=== PATIENT | female | born 1990 | race African-American/Black ===

== ENCOUNTER 2025-06-14 08:22 | Outpatient (AMB) | payer MEDICAID, SELFPAY ==
--- NOTE | 2025-06-14 10:28 | A.OFFVIS_ITS ---
VS Expanded 06/14/25 10:38 Height 5 ft 2 in Weight 264 lb 4 oz BMI 48.3 Body Fat % 47.2 Body Fat Mass 124.8 Fat Free Mass 139.6 Visceral Fat Rating 15 Body Water % 37.9 Body Water Mass 100 Basal Metabolic Rate/Score 1,999 Intake Visit Reasons: TV 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 BMI 48.4 Allergies No Known Allergies Allergy (Verified 06/14/25 10:28) Medication List - Last Reconciled 06/14/25 by Hernando Rizzo MD aripiprazole 5 mg PO DAILY bupropion HCl SR 200 mg PO BID buspirone 15 mg PO BID famotidine 20 mg PO BID lisdexamfetamine (Vyvanse) 30 mg PO DAILY omeprazole 20 mg PO DAILY quetiapine 25 mg PO DAILY vilazodone 20 mg PO QAM HPI HPI TV [employer] 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 BMI 48.4: Details: Start time: 10.20am, End time: 11am ?I spent 35 minutes speaking with the patient on the phone plus an additional 5 minutes reviewing and updating records for a total of 40 minutes HPI Comments Details: Previous weight loss efforts: Calorie counting (GORDON harjit), exercise Wakes up: 6.30am, Sleeps: 10pm Breakfast: 8am (yogurt, cereal, oatmeal) Lunch: 12pm (pizza, potatoes, chicken, broccoli) Dinner: 6pm (chicken, pork chop, starch) Snacks: 10am (fruits, chips), 4pm (same), 8pm (same) Exercise: none Beverages: Coffee: (1 cup/d with sugar and cream), Tea: Sweet tea sometimes, Soda: Coke zero, Juice: none, ETOH: none PFSH Medical History (Updated 06/14/25 @ 10:44 by Hernando Rizzo MD) DJD (degenerative joint disease) GERD (gastroesophageal reflux disease) ADHD PTSD (post-traumatic stress disorder) Anxiety Depression Morbid obesity Surgical History (Updated 05/24/25 @ 11:21 by Anaya Downing CMA) History of intestinal surgery History of surgery on arm History of repair of ACL Hx of tooth extraction Family History (Updated 05/22/25 @ 09:24 by Anaya Downing CMA) Mother No problems noted. Father No problems noted. Daughter No problems noted. Daughter ADHD Son ADHD Son ADHD Son ADHD Autism Social History (Updated 05/22/25 @ 09:25 by Anaya Downing CMA) Alcohol intake: never Patient Tobacco Use Status: Never used Tobacco Telehealth Telehealth Telehealth Platform: Telephone Location of provider rendering services: practice address Location of patient: address on file Patient Identification confirmed using: Name, : Yes Telehealth method: voice only Patient verbally consented to treatment: Yes Patient verbally consented to billing insurance company: Yes Patient informed of any privacy concerns related to visit: Yes Minutes spent on Phone/Video with Pt.: 40 Assessment & Plan Assessment & Plan (1) Morbid obesity: Code(s): E66.01 - Morbid (severe) obesity due to excess calories Category: Medical Plan: 1.? Plan for lap sleeve gastrectomy. If diaphragmatic or ventral hernias are present at time of surgery, these will be repaired laparoscopically as well. I emphasized the importance of close follow-up, adherence to instructions and good communication. The surgery does not replace the need to change your lifestlyle which is the cause of the obesity problem. The surgery provides the motivation to try again to change your lifestyle, it reduces the appetite and make the transition to a better lifestyle easier and doubles the amount of weight you would lose compared to doing the lifestyle change without the surgery. You will need to be on a liquid diet with protein shakes for 2 weeks before surgery to maximize weight loss and boost your nutritional status to recover better from surgery and also for the first two weeks after surgery to let the stomach heal before we introduce other foods. After the first 2 weeks we will introduce protein bars and soft foods like scrambled eggs, cottage cheese and yogurt and after the 6th week will introduce meat, fish and cooked vegetables in small amounts. Over time you should be able to eat everything in small amounts. Side effects like nausea, vomiting, heartburn or abdominal pain are not common in the practice unless you are not following in the practice. This operation requires lifetime commitment to following in our practice and communication with me. You will much less weight and experience side effects if you don?t communicate or not following in the practice. Complications are rare and in our practice is about 1/10 of the national average. However, you can develop bleeding that may require transfusion (hasn?t happened for year in the practice), you may from complications (we did not have any deaths in the practice) and infections. Infections are usually a result of breakdown in communication or not understanding or following directions correctly. They are difficult to treat, they can happen during the first 6 weeks, they may require to be in the hospital for weeks or even months, not being able to eat by mouth and you may have drains and surgeries to try and correct the issue. Other risks and complications include possible conversion to an open procedure, leaks, small bowel obstruction, blood clots, cardiac, or pulmonary complications, as mcfp complications such as ulcers, insufficient weight loss and vitamin deficiencies. 2. You will receive a link of our software harjit to generate an individualized nutritional and exercise plan specific for you. Please send me a screenshot of the plans you will generate Meal to include lean meat (beef, fish, pork, turkey, chicken), or equatorial guinean yogurt, or egg whites, or beans with a salad with olive oil and fruits (berries, pears, apples, kiwi). Avoid salt, breads, potatoes, rice, pasta, desserts. ?3. If you choose shakes, each shake would be drunk slowly, like coffee in a period of 2 hours. ?4. If you choose bars, cut each bar in 4 pieces and eat each piece in 30min ?to make each bar last 2 hours. ?5. I emphasized the importance of measuring accurately the food portion and measure it when serving the food in plate ?6. The meal portions include a specific number of forks of meat and salad. You always eat the meat portion but you can replace up to half of salad/vegetables portion with rice, potatoes or pasta, or a fruit ?if you like. The less you do it the better weight loss will be. ?7. One full-size fork is what it can be scooped on the fork without falling aside and not what can be bit with the fork. Use regular forks like those you find in a typical restaurant. ?8.? Please buy the body composition scale we discussed and send me weight measurements as soon as possible and then once a week. Always include your diet and exercise plan. 9. The best choice would be to purchase a stationary bike, elliptical or treadmill at home that can track calories. Let me know if you do so I can give you an exercise plan. 9. The best exercise choice would be to use your treadmill at home that can track calories. You can create and exercise plan with the [employer] harjit. ?10.?It is important of avoiding and for at least 18 months postoperatively and has been discussed at the infosession. ?11. Goal is to lose at least 1.5-2lbs per week ?12. Goal to lose 10% of your weight before surgery, which is about 24lbs. Ultimate weight goal: 240lbs before surgery 13. Plese follow the diet plan exactly without any change. If you don't like something about the plan or you feel hungry you need to communicate with me so I can help you revise the plan. You should not change the plan yourself. 14. To be scheduled for EGD to assess the stomach?s anatomy. The possibility of biopsies was discussed. Patient needs to avoid use of NSAIDs and aspirin for 1 week prior to EGD. You must be on liquids only the day before your endoscopy. Risks of perforation and bleeding was discussed with the patient. This will be an outpatient procedure with IV sedation.
[2025-06-14 10:38] VITALS: BMI 48.3
== END 2025-06-14 11:01 | disposition home or self-care (01) ==
LOC: HO.HBS 08:22
PROVIDERS: Visit Provider Surgery
DX: E66.01 Morbid (severe) obesity due to excess calories (principal); Z68.42 Body mass index [BMI] 45.0-49.9, adult
CPT/HCPCS: 98009

== ENCOUNTER 2025-07-17 10:13 | Outpatient (AMB) | payer OTHER, SELFPAY ==
--- NOTE | 2025-07-17 10:05 | A.OFFWM_ITS ---
Intake Intake Visit Reasons: TV BH Intake Allergies No Known Allergies Allergy (Verified 06/14/25 10:28) [facility] Medical History (Updated 07/17/25 @ 11:03 by Lyla Herr [facility]) DJD (degenerative joint disease) GERD (gastroesophageal reflux disease) ADHD PTSD (post-traumatic stress disorder) Anxiety Depression Morbid obesity Surgical History (Updated 05/24/25 @ 11:21 by Anaya Downing CMA) History of intestinal surgery History of surgery on arm History of repair of ACL Hx of tooth extraction Family History (Updated 05/22/25 @ 09:24 by Anaya Downing CMA) Mother No problems noted. Father No problems noted. Daughter No problems noted. Daughter ADHD Son ADHD Son ADHD Son ADHD Autism Social History (Updated 05/22/25 @ 09:25 by Anaya Downing CMA) Alcohol intake: never Patient Tobacco Use Status: Never used Tobacco Behavioral Health Assessment Weight Management Therapy Therapy Notes Details The patient is a 34-year-old female/male presenting for a behavioral health assessment as part of the surgical weight loss program. She reports being initially referred by her primary care provider due to persistent lower back pain. The patient?s back pain medications interact with her current psychiatric medications, and she was advised to pursue weight loss as a strategy to help alleviate her back pain and reduce the need for additional medications. Presenting Concerns Referral Source WMP-Provider. Reason for referral Completion of behavioral health assessment as part of process for weight-loss surgery. Precipitating Event Obesity, low back pain and pre-diabetes. Living Situation Current Living Situation Rent At risk of losing current housing? No Satisfied with current living situation? Yes Comments PT lives with her and 5 children. Social History Family history and relationship PT is for 3 years, but they have known each other since age 14. She has 5 children from a previous relationship, the oldest is 16, and the youngest is 8. PT has 6 brothers and 2 sisters; her parents are alive. PT reports she has good family relationships at home; however, she is not close to her siblings or father. Her mother is her best friend. Parental/Familial development mechanic obligations 5 children. Developmental history and status PT reports she had an IEP for Serbian and math. Recently diagnosed with ADHD and is currently on meds. Social support , mother. Community support PCP, Therapist, Psych. prescriber. Youth villages with her 15-year-old daughter. Christianity/Spirituality None. Cultural/Ethnic information -[place]. Legal Involvement and History Current or historical involvement with the legal system? None. Education Highest grade completed HS. Preferred learning style Visual Currently enrolled in educational program? No Interested in further educational program? Yes Educational Interests/Skills PT would like to get a degree in early education. Hoping to do it by next year. Employment Employment Status Unemployed (a year ago. ) Wants help to find employment? No Meaningful activities Puzzles, art, read, write, family activities, and cooking. Financial Situation Describe current financial situation Comfortable Financial assistance? Food [place] and [employer]AF[employer] Service Service? No Mental Health and Addiction Treatment Current/Past substance abuse? No Comments Alcohol: holidays only. 1-2 at year. 1 wine cooler. Cigarettes/Tobacco: Quit cigarettes 3 years ago. Uses a Vape w/ nicotine, 3 vapes in a month, she uses it multiple times at day. Cannabis/Edibles: None. Current/Past addictive behavior concerns? No Psychiatric history PT reports she has been in counseling since age 17 as at the time she had PPD, and her trauma hit her after . She currently goes to [facility]- providers are based in [facility], currently services are currently via Telehealth. Her therapist is Rosa Garibay, and prescriber IVET Bender. PT meets with her therapist every week and with the prescriber every 3 months. PT is currently diagnosed with major depression, Generalized anxiety disorder, ADHD, and PTSD. PT reports she has been stable for the last 4 years, and she has done DBT groups and is consistent with outpatient services. Years ago, she was unable to leave the house due to social anxiety. She hasn't had a full depressive episode in years; however, now she has shorter lapses of about 3-5 days up to a week with mild Sx. The last lapse was about a month ago, and she might experience these a couple of times a year. Currently, psych meds: - Aripiprazole 5mg 1 at day, for depress ion and PTSD Sx. - Bupropion 200mg 2 at day for depressio n. - Buspirone 15mg, 2 at day, for anxiety - Vyvanse 30mg 1 at day for ADHD. - Quetiapine 25mg, 1 at bedtime for slee p - Vilazodone 20mg, 1 in the morning for depression. PT denies ever being hospitalized or in a mental health crisis. Also denies any safety concerns around SI/Sa, self-harm, other harm, and there is no Hx of substance use disorder. PT reports her MH providers are on board with her having weight-loss surgery and will be providing a letter to support her clearance. Medical and Physical Health Summary Additional Medical History not covered in history Pre-diabetes Sexual History concerns None reported Physical exam in the last year? Yes Pain Screening Current pain? Yes Pain in the last few months? Yes Comments The patient reports a stabbing sensation in the lower back that radiates down her leg. She is unable to stand for prolonged periods and is currently significantly impaired in performing activities of daily living, such as showering or washing dishes. She has trialed various interventions without significant relief. Attempts at physical therapy have been unsuccessful due to the severity of her pain. She rates her average daily pain as 8 out of 10, describing it as pretty high. Trauma/Abuse History History of trauma? Yes (JUAN: 6 - Active PTSD diagnosis.) Questionnaires PHQ-9 Over the last 2 weeks, how often have you been bothered by any of the following problems? 1. Little interest or pleasure in doing things: nearly every day 2. Feeling down, depressed, or hopeless: nearly every day 3. Trouble falling or staying asleep, or sleeping too much: several days 4. Feeling tired or having little energy: nearly every day 5. Poor appetite or overeating: nearly every day 6. Feeling bad about yourself - or that you are a failure or have let yourself or your family down: nearly every day 7. Trouble concentrating on things, such as reading the newspaper or watching television: several days 8. Moving or speaking so slowly that other people could have noticed. Or the opposite - being so fidgety or restless that you have been moving around a lot m ore than usual: nearly every day 9. Thoughts that you would be better off or of hurting yourself in some way: not at all Total score: 20 Depression Screening Interpretation: Positive (From new PT pack - New one will be administered at next visit. ) Depression Screening Follow-up: Existing condition and In treatment Depression Screening Done: Yes Source: Developed by Lola Hancock B.W. Adriano, Donny Najera and colleagues, with an educational carisa from [employer]. Binge Eating Scale Group 1 A. I don't feel self-conscious about my wt. or body size when I'm with others. B. I feel concerned about how I look to others, but it normally does not make me fell disappointed with myself C. I do get self-conscious about my appearance and wt. which makes me feel disappointed in myself. D. I feel very self-conscious about my wt. and frequently I feel intense shame and disgust for myself. I try to avoid social contacts because of my self- consciousness. Response Group 1: D Group 2 A. I don't have any difficulty eating slowly in the proper manner. B. Although I seem to gobble down foods, I don't end up feeling stuffed because of eating to much. C. At times, I tend to eat quickly and then, I feel uncomfortably full afterwards. D. I have the habit of bolting down my food, without really chewing it. When this happens I usually feel uncomfortably stuffed because I've eaten to much. Response Group 2: A Group 3 A. I feel capable to control my eating urges when I want to. B. I feel like I have failed to control my eating more than the average person. C. I feel utterly helpless when it comes to feeling in control of my eating urge s. D. Because I feel so helpless about controlling my eating I have become very desperate about trying to get control. Response Group 3: B Group 4 A. I don't have the habit of eating when I'm bored. B. I sometimes eat when I'm bored, but often I'm able to get busy and get my mind off food. C. I have a regular habit of eating when I'm bored, but occasionally, I can use some other activity to get my mind off eating. D. I have a strong habit of eating when I'm bored. Nothing seems to help me breath the habit. Response Group 4: C Group 5 A. I'm usually physically hungry when I eat something. B. Occasionally, I eat something on impulse even though I really am not hungry. C. I have the regular habit of eating foods, that I might not really enjoy, to satisfy a hungry feeling even though physically, I don't need the food. D. Although I'm not physically hungry, I get a hungry feeling in my mouth that only seems to be satisfied when I eat a food, like sandwich, that fills my mouth. Sometimes, when I eat the food to satisfy my mouth hunger, I then spit the food out so I won't gain weight. Response Group 5: C Group 6 A. I don't feel any guilt or self-hate after I overeat. B. After I overeat, occasionally I feel guilt or self-hate. C. Almost all the time I experience strong guilt or self-hate after I overeat. Response Group 6: C Group 7 A. I don't lose total control of my eating when dieting even after periods when I overeat. B. Sometimes when I eat a forbidden food on a diet, I feel like I blew it and eat even more. C. Frequently, I have the habit of saying to myself, I've blown it now, why not go all the way, when I overeat on a diet. When that happens I eat more. D. I have a regular habit of starting a strict diets for myself but I break the diets by going on an eating binge. My life seems to be either a feast or famine. Response Group 7: B Group 8 A. I rarely eat so much food that I feel uncomfortably stuffed afterwards. B. Usually about once a month, I each such a quantity of food, I end up feeling very stuffed. C. I have regular periods during the month when I eat large amounts of food, either at mealtime or at snacks. D. I eat so much food that I regularly feel quite uncomfortable after eating and sometimes a bit nauseous. Response Group 8: A Group 9 A. My level of calorie intake does not go up very high or go down very low on a regular basis. B. Sometimes after I overeat, I will try to reduce my caloric intake to almost nothing to compensate for the excess calories I've eaten. C. I have a regular habit of overeating during the night. It seems that my routine is not to be hungry in the morning but overeat in the evening. D. In my adult years, I have had week-long periods where I practically starve myself. This follows periods when I overeat. It seems I live a life of either feast or famine. Response Group 9: D Group 10 A. I usually am able to stop eating when I want to. I know when enough is enough. B. Every so often, I experience a compulsion to eat which I can't seem to control. C. Frequently, I experience strong urges to eat which I seem unable to control, but at other times I can control my eating urges. D. I feel incapable of controlling urges to eat. I have a fear of not being able to stop eating voluntarily. Response Group 10: B Group 11 A. I don't have any problem stopping eating when I feel full. B. I usually can stop eating when I feel full but occasionally overeat leaving me feeling uncomfortably stuffed. C. I have a problem stopping eating once I start and usually I feel uncomfortably stuffed after I eat a meal. D. Because I have a problem not being able to stop eating when I want, I sometimes have to induce vomiting to relieve my stuffed feeling. Response Group 11: A Group 12 A. I seem to eat just as much when I'm with others, Family social gatherings as when I'm by myself. B. Sometimes, when I'm with other persons, I don't eat as much as I want to eat because I'm self-conscious about my eating. C. Frequently, I eat only a small amount of food when others are present, because I'm very embarrassed about my eating. D. I feel so ashamed about overeating that I pick times to overeat when I know no one will see me. I feel like a closet eater. Response Group 12: A Group 13 A. I eat three meals a day with only an occasional between meal snack. B. I eat 3 meals a day, but I also normally snack between meals. C. When I am snacking heavily, I get in the habit of skipping regular meals. D. There are regular periods when I seem to be continually eating, with no planned meals. Response Group 13: C Group 14 A. I don't think much about trying to control unwanted eating urges. B. At least some of the time, I feel my thoughts are pre-occupied with trying to control my eating urges. C. I feel that frequently I spend much time thinking about how much I ate or about trying not to eat anymore. D. It seems to me that most of my waking hours are pre-occupied by thoughts about eating or not eating. I feel like I'm constantly struggling not to eat. Response Group 14: D Group 15 A. I don't think about food a great deal. B. I have strong craving for food but they last only for brief periods of time. C. I have days when I can't seem to think about anything else but food. D. Most of my days seem to be pre-occupied with thoughts about food. I feel like I live to eat. Response Group 15: D Group 16 A. I usually know whether or not I'm physically hungry. I take the right portion of food to satisfy me. B. Occasionally, I feel uncertain about knowing whether or not I'm physically hungry. A these times it's hard to know how much food I should take to satisfy me. C. Even though I might know how many calories I should eat, I don't have any idea what is a normal amount of food for me. Response Group 16: A Binge Eating Score: 23 Score less than 17 Minimal Risk Score between 18-26 Moderate Risk Score between 27-46 High Risk Assessment & Plan Assessment & Plan (1) PTSD (post-traumatic stress disorder): Code(s): F43.10 - Post-traumatic stress disorder, unspecified (2) Anxiety: Code(s): F41.9 - Anxiety disorder, unspecified (3) Depression: Code(s): F32.A - Depression, unspecified Qualifiers: Depression Type: major depressive disorder Major depression episode severity: unspecified Major depression recurrence: recurrent (4) ADHD: Code(s): F90.9 - Attention-deficit hyperactivity disorder, unspecified type (5) Pre-bariatric surgery psychological evaluation: Code(s): Z71.89 - Other specified counseling Plan The patient was not cleared today as the behavioral health assessment remains incomplete. She will return in two weeks to continue the evaluation process. The patient has been informed that a letter or behavioral health clearance form from her mental health providers will be required to support her clearance. A request for this documentation will be sent via fax to the providers, and a copy will also be mailed to the patient. * Next appointment:?08/01/25 at 11:00 AM, PV. Telehealth Telehealth Telehealth Platform: [employer] Location of provider rendering services: other (Home office. [place], [place]) Location of patient: address on file Patient Identification confirmed using: Name, : Yes Telehealth method: voice only Patient verbally consented to treatment: Yes Patient verbally consented to billing insurance company: Yes Patient informed of any privacy concerns related to visit: Yes Minutes spent on Phone/Video with Pt.: 60 Coding Level of Care Code New Pt Tele Psy Diag Eval (04485) Patient Type New Diagnoses PTSD (post-traumatic stress disorder) F43.10 Anxiety F41.9 Depression F32.A Depression Type: major depressive disorder Major depression episode severity: unspecified Major depression recurrence: recurrent ADHD F90.9 Pre-bariatric surgery psychological evaluation Z71.89 Time Spent (min) 60
== END 2025-07-17 11:02 | disposition home or self-care (01) ==
LOC: HO.HBST 10:13
PROVIDERS: PCP Internal Medicine; Visit Provider Counselor Mental Health
DX: F43.10 Post-traumatic stress disorder, unspecified (principal); F41.9 Anxiety disorder, unspecified; F32.A Depression, unspecified; F90.9 Attention-deficit hyperactivity disorder, unspecified type; Z71.89 Other specified counseling
CPT/HCPCS: 90791